=== PATIENT | female | born 2000 | race Caucasian/White ===

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

== ENCOUNTER 2022-02-19 10:08 | Emergency (ER) | payer OTHER ==
[2022-02-19 10:18] VITALS: BP 119/70; PULSE 95; TEMP 97.9; BMI 26.2
[2022-02-19] MEDS ORDERED: ONDANSETRON 4 MG/2 ML VIAL IVPUSH ONE (10:40)
[2022-02-19] MEDS ORDERED: MAG HYDROX/AL HYDROX/SIMETH 30 ML UNIT-DOSE CUP PO ONE (10:40)
[2022-02-19] MEDS ORDERED: SODIUM CHLORIDE 0.9% 500 ML INFUS.BAG IV ONE (10:40)
[2022-02-19] MEDS ORDERED: FAMOTIDINE 20 MG/50 ML IVPB 20 MG/50 ML MG IVPB ONE (10:40)
[2022-02-19] MEDS ORDERED: ONDANSETRON 4 MG/2 ML VIAL ONE (11:05)
[2022-02-19] MEDS ORDERED: MAG HYDROX/AL HYDROX/SIMETH 30 ML UNIT-DOSE CUP ONE (11:05)
[2022-02-19] MEDS ORDERED: FAMOTIDINE 10 MG/ML VIAL IVPB ONE (11:06)
[2022-02-19 11:25] LABS: BASO % 0.2 % (0-2.0); EOS % 1.5 % (0-4.5); HEMATOCRIT 47.9 % (32.4-45.2); HEMOGLOBIN 15.9 GM/dL (10.7-15.3); LYMPH % 10.7 % (8-40); MCH 29.2 pg (25.7-33.7); MCHC 33.3 g/dl (32.0-36.0); MEAN CELL VOLUME 87.7 fl (80-96); MONO % 5.3 % (3.8-10.2); NEUT % 82.3 % (42.8-82.8); PLATELET COUNT 318 10^3/uL (134-434); RBC 5.46 M/mm3 (3.60-5.2); RDW 13.9 % (11.6-15.6); WHITE BLOOD COUNT 14.8 K/mm3 (4.0-10.0)
[2022-02-19 11:48] LABS: CHLORIDE 107 mmol/L (98-107); SODIUM 138 mmol/L (136-145)
[2022-02-19 11:50] LABS: GLUCOSE,RANDOM 114 mg/dL (74-106)
[2022-02-19 11:51] LABS: ANION GAP 6 MMOL/L (8-16); BLOOD UREA NITROGEN 10.5 mg/dL (7-18); CO2 24 mmol/L (21-32); LIPASE 219 U/L (73-393); MAGNESIUM 1.8 mg/dL (1.8-2.4)
[2022-02-19 11:53] LABS: SGPT/ALT 26 U/L (13-61)
[2022-02-19 11:54] LABS: CREATININE 0.6 mg/dL (0.55-1.3); SGOT/AST 20 U/L (15-37)
[2022-02-19 11:55] LABS: BILIRUBIN,TOTAL 1.4 mg/dL (0.2-1); TOT PROT 7.8 g/dl (6.4-8.2)
[2022-02-19 11:56] LABS: ALK PHOS 106 U/L (45-117)
== END 2022-02-19 13:35 | disposition home or self-care (01) ==
LOC: JER 10:08
PROC: 3E033GC Introduction of Other Therapeutic Substance into Peripheral Vein, Percutaneous Approach (ICD-10-PCS; principal; 2022-02-19)
PROC: 3E033GC Introduction of Other Therapeutic Substance into Peripheral Vein, Percutaneous Approach (ICD-10-PCS; 2022-02-19)
DX: R11.10 Vomiting, unspecified (principal); R19.7 Diarrhea, unspecified; R10.9 Unspecified abdominal pain
CPT/HCPCS: 0241U-QW; 36415; 80053; 83690; 83735; 84702; 85025; 99281-25